=== PATIENT | female | born 1975 | race Hispanic/Latino ===

== ENCOUNTER 2019-03-27 19:52 | Emergency (ER) | payer BC ==
[2019-03-27 20:38] LABS: #Basophils 0.1 thou/uL (0.0-0.2); #Eosinphils 0.2 thou/uL (0.0-0.7); #Lymphocytes 2.7 thou/uL (1.20-3.40); #Monocytes 0.4 thou/uL (0.11-0.59); #Neutrophils 5.4 thou/uL (1.40-6.50); %Basophils 0.8 % (0.0-1.0); %Eosinophils 1.8 % (0.0-10.0); %Lymphocytes 30.8 % (21.0-51.0); %Monocytes 4.8 % (0.0-10.0); %Neutrophils 61.8 % (42.0-75.0); Hemoglobin 13.6 g/dL (12.0-16.0); Mean Corpuscular HGB CONC 34.6 g/dL (32.0-36.0); Mean Corpuscular Hemoglobin 30.2 pg (27.0-31.0); Mean Corpuscular Volume 87.3 fL (78.0-98.0); Mean Platelet Volume 7.7 fL (7.4-10.4); Platelet Count 301 thou/uL (130-400); RBC Distribution Width 11.3 % (11.5-14.5); Red Blood Cell (RBC) Count 4.48 mill/uL (4.20-5.40); White Blood Cell (WBC) Count 8.8 thou/uL (4.8-10.8)
--- NOTE | 2019-03-27 20:58 | CT ---
CT HEAD WITHOUT CONTRAST: 03/27/19 HISTORY: Headache. Dizziness. Ventricles have normal size and position. No evidence of intracranial mass, hemorrhage, infarct or ed dov. Sinuses are clear. IMPRESSION: No acute findings. POS: AGW
[2019-03-27 21:00] LABS: ALT (SGPT) 32 U/L (8-55); AST (SGOT) 27 U/L (5-34); Albumin 4.1 g/dL (3.5-5.0); Alkaline Phosphatase 119 U/L (40-110); Anion Gap 14 mmol/L (10-20); BUN (Urea Nitrogen) 9 mg/dL (7.0-18.7); Bilirubin, Total 0.3 mg/dL (0.2-1.2); CK (CPK) 67 U/L (29-168); Calc. Creatinine Clearance 0 mL/min (70-130); Calcium 9.5 mg/dL (7.8-10.44); Carbon Dioxide 28 mmol/L (22-29); Chloride 102 mmol/L (98-107); Estimated GFR-MDRD 84; Globulin 3.6 g/dL (2.4-3.5); Glucose 152 mg/dL (70-105); Potassium 3.9 mmol/L (3.5-5.1); Protein, Total 7.7 g/dL (6.0-8.3); Sodium 140 mmol/L (136-145)
--- NOTE | 2019-03-27 21:22 | RAD ---
PORTABLE AP CHEST X-RAY: 03/27/19 HISTORY: Chest pain. COMPARISON: 04/23/15. FINDINGS: The cardiac silhouette and pulmonary vasculature are within normal limits for the portable technique of the study. The lungs are clear. There has been no interval change from prior exam. IMPRESSION: No acute cardiopulmonary process. POS: OFF
[2019-03-27] MEDS ORDERED: diphenhydrAMINE 50 MG/ML VIAL ONE (21:50)
[2019-03-27] MEDS ORDERED: Metoclopramide HCl 10 MG/2 ML VIAL ONE (21:50)
== END 2019-03-27 23:00 | disposition home or self-care (01) ==
LOC: ERS 19:52
DX: R51 Headache (principal); R11.2 Nausea with vomiting, unspecified; R07.9 Chest pain, unspecified
CPT/HCPCS: 36415; 70450; 71045; 80053; 82550; 84484; 85025; 93005; 96365; 96375; J1200; J2765

== ENCOUNTER 2019-10-09 08:04 | Outpatient (CLI) | payer OTHER ==
--- NOTE | 2019-10-09 09:13 | MMO ---
Bilateral MAMMO Bilat Screen [facility]. CLINICAL HISTORY: Patient is 44 years old and is seen for screening. VIEWS: The views performed were: bilateral craniocaudal with tomosynthesis and bilateral mediolateral oblique with tomosynthesis. FILMS COMPARED: The present examination has been compared to prior imaging studies performed at [facility] on 10/02/2019 and 10/09/2019. This study has been interpreted with the assistance of computer-aided detection. MAMMOGRAM FINDINGS: The breasts are heterogeneously dense, which could obscure a lesion on mammography. Architectural distortion in the left 10:00 breast persists and corresponds to a suspicious mass on US. In the right breast, there are no suspicious masses, calcifications or areas of architectural distortion. IMPRESSION: FINDING IN THE LEFT BREAST IS SUSPICIOUS. AN ULTRASOUND-GUIDED BREAST BIOPSY IS RECOMMENDED. THE RESULTS OF THIS EXAM WERE SENT TO THE PATIENT. ACR BI-RADS Category 4 - Suspicious abnormality - biopsy should be considered D/W pt in person @ 8:43 am. MAMMOGRAPHY NOTE: 1. A negative mammogram report should not delay a biopsy if a dominant of clinically suspicious mass is present. 2. Approximately 10% to 15% of breast cancers are not detected by mammography. 3. Adenosis and dense breasts may obscure an underlying neoplasm. Reported by: KAVITA MAR MD Electonically Signed: [id number]
--- NOTE | 2019-10-09 10:56 | ULT ---
LEFT BREAST ULTRASOUND: Date: 10/09/2019 HISTORY: Abnormal mammogram. FINDINGS: Correlation is made with the mammograms of same date. There is a 6.0 x 8.0 x 8.0 mm shadowing mass at the 10 o'clock position of the left breast, taller th an wide, 2.0 cm from the nipple, corresponding to the mammographic finding. Enlarged lymph nodes are seen in the left axilla, the largest measuring 2.9 x 1.3 cm. IMPRESSION: BI-RADS Category 4 - Suspicious abnormality. Ultrasound-guided biopsy of the left breast mass is avinash mmended. Discussed in person with the patient at 0843 hours.
== END 2019-10-09 08:05 | disposition home or self-care (01) ==
LOC: BICULT 08:04
PROVIDERS: ATTEND Physician Assistant
DX: Z12.31 Encounter for screening mammogram for malignant neoplasm of breast (principal); N63.20 Unspecified lump in the left breast, unspecified quadrant
CPT/HCPCS: 77063; 77067

== ENCOUNTER 2019-10-16 06:34 | Outpatient (CLI) | payer OTHER ==
[2019-10-16 17:31] LABS: #Basophils 0.1 thou/uL (0.0-0.2); #Eosinphils 0.2 thou/uL (0.0-0.7); #Lymphocytes 2.5 thou/uL (1.20-3.40); #Monocytes 0.5 thou/uL (0.11-0.59); %Basophils 0.8 % (0.0-1.0); %Eosinophils 1.7 % (0.0-10.0); %Lymphocytes 27.2 % (21.0-51.0); %Monocytes 5.7 % (0.0-10.0); %Neutrophils 64.7 % (42.0-75.0); Hemoglobin 13.2 g/dL (12.0-16.0); Mean Corpuscular HGB CONC 32.9 g/dL (32.0-36.0); Mean Corpuscular Hemoglobin 29.9 pg (27.0-31.0); Mean Corpuscular Volume 91.1 fL (78.0-98.0); Mean Platelet Volume 8.1 fL (7.4-10.4); Platelet Count 305 thou/uL (130-400); RBC Distribution Width 11.8 % (11.5-14.5); Red Blood Cell (RBC) Count 4.42 mill/uL (4.20-5.40); White Blood Cell (WBC) Count 9.2 thou/uL (4.8-10.8)
[2019-10-16 17:42] LABS: Anion Gap 11 mmol/L (10-20); BUN (Urea Nitrogen) 10 mg/dL (7.0-18.7); Calc. Creatinine Clearance 0 mL/min (70-130); Calcium 9.5 mg/dL (7.8-10.44); Carbon Dioxide 26 mmol/L (22-29); Chloride 107 mmol/L (98-107); Estimated GFR-MDRD 79; Glucose 86 mg/dL (70-105); Potassium 3.6 mmol/L (3.5-5.1); Sodium 140 mmol/L (136-145)
[2019-10-17 10:58] LABS: SARS-CoV-2 MS2 Positive; SARS-CoV-2 N Gene Negative; SARS-CoV-2 S Gene Negative; SARS-CoV-2 orf1ab Negative
== END 2019-10-16 06:35 | disposition home or self-care (01) ==
LOC: LABBT 06:34
PROVIDERS: ATTEND Specialist
DX: Z01.812 Encounter for preprocedural laboratory examination (principal); Z11.59 Encounter for screening for other viral diseases; N63.20 Unspecified lump in the left breast, unspecified quadrant
CPT/HCPCS: 80048; 85025; 87635; U0003

== ENCOUNTER 2019-10-19 06:54 | Day surgery (SDC) | payer OTHER ==
[2019-10-16 15:40] VITALS: BMI 33.3
--- NOTE | 2019-10-19 07:11 | HP ---
HISTORY OF PRESENT ILLNESS: Kerry Amaya is a 44-year-old female, intermediate services [facility], presents with left breast density, 10 o'clock radian, left breast retroareolar. She has undergone ultrasound and mammograms revealing normal right breast, but density in left breast, felt best addressed by mammo needle localization rather than ultrasound-guided biopsy because of the patient's location and small size, 6 x 8 x 8 mm shadowing on ultrasound on 10/09/2019. FAMILY HISTORY: Negative for breast cancer. Menarche at 8 to 9 years of age. 3, para 3. First at 17 years of age. She is 44 years old and had a hysterectomy at 41 years of age because of abnormal Pap smear. ALLERGIES: NONE. SOCIAL HISTORY: Tobacco, none. Alcohol, none. MEDICATIONS: 1. Iron. 2. Vitamin D3. 3. Venlafaxine. 4. Bactrim DS. 5. Mupirocin. PAST MEDICAL HISTORY: Anxiety and depression. PAST SURGICAL HISTORY: Tubal ligation in 1997, followed by hysterectomy. FAMILY HISTORY: Diabetes and hypertension. REVIEW OF SYSTEMS: Ten-point noncontributory. PHYSICAL EXAMINATION: VITAL SIGNS: Weight 188 pounds, height 63 inches, 33 BMI, blood pressure 128/81, pulse 95, and temperature 97.2 degrees. HEAD, EARS, EYES, NOSE, AND THROAT: Unremarkable. LUNGS: Clear to auscultation. CARDIAC: Regular rate and rhythm without murmur or gallop. ABDOMEN: Soft, obese, nontender. BREASTS: Both breasts without palpable abnormalities. Nipple and areola are normal. Left axilla without palpable abnormality. EXTREMITIES: Unremarkable. ASSESSMENT: Left breast density, nonpalpable. PLAN: Mammographically needle localized excisional biopsy. She will follow up in the office in 3 to 4 days for postoperative pathology results. Of note is ultrasound did reveal a greater than 2.5 cm left axillary node that I cannot palpate. We will await breast biopsy results. Excisional. Job ID: [id number]
--- NOTE | 2019-10-19 08:39 | MMO ---
Needle localization left breast mass mammographic guided HISTORY: Abnormal mammogram. Spiculated left breast mass. Upper inner quadrant. FINDINGS: After explaining the procedure and answering all questions, the spiculated mass at the supe rior medial aspect of the left breast was visualized. Sterile technique, buffered local anesthesia, mammographic guidance, and a superior approach were used to carefully advance a 7.5 cm [place] needle i mmediately deep to the mass. Guidewire was placed when needle tip was immediately inferior and posterior to the center of the spiculated mass. Final images were marked. Patient tolerated the proce dure well and was transferred to day surgery in good condition. IMPRESSION : Technically successful needle localization left breast mass.
[2019-10-19] MEDS ORDERED: PROPOFOL 200 MG/20 ML VIAL ONE (11:51)
[2019-10-19] MEDS ORDERED: Lidocaine 1% PF 5 ML VIAL ONE (11:51)
[2019-10-19] MEDS ORDERED: Ondansetron PF 4 MG/2 ML Vial ONE (11:51)
[2019-10-19] MEDS ORDERED: Dexamethasone 20 MG/5 ML VIAL ONE (11:51)
[2019-10-19] MEDS ORDERED: Bupivacaine 0.25% HCL 30 ML VIAL ONE (12:20)
[2019-10-19] MEDS ORDERED: Bupivacaine PF 0.5% 30 ML VIAL ONE (12:20)
[2019-10-19] MEDS ORDERED: Lidocaine 2% w/Epinephrine 1:200K 20 ML VIAL ONE (12:20)
[2019-10-19] MEDS ORDERED: Fentanyl 100 MCG/2 ML VIAL ONE (12:24)
--- NOTE | 2019-10-19 14:01 | MMO ---
Surgical specimen mammography HISTORY: Breast mass. FINDINGS: Mammographic evaluation of the surgical specimen obtained by Dr. Forman shows the localizat ion wire and spiculated mass.
[2019-10-19] MEDS ORDERED: HYDROcodone/Acetaminophen 5/325 mg Tablet ONE (14:05)
--- NOTE | 2019-10-19 18:39 | OP ---
DATE OF PROCEDURE: 10/19/2019 PREOPERATIVE DIAGNOSIS: Small density retroareolar 10 o'clock radian, left breast, not amenable to preoperative biopsy requiring mammographic needle localization. POSTOPERATIVE DIAGNOSIS: Small density retroareolar 10 o'clock radian, left breast, not amenable to preoperative biopsy requiring mammographic needle localization. PROCEDURE: Radiology mammo needle localization, wire lesion, left retroareolar breast 10 o'clock R[place] with wide local excision of mass extending from medial to lateral retroareolar and lateral breast to accomplish resection of the localizing wire with margins marked and specimen mammography assuring spiculated mass retrieval. ANESTHESIA: General, local 0.5% Marcaine mixed with 2% Xylocaine with epinephrine 30 mL. DESCRIPTION OF PROCEDURE: Patient was taken to the operating room, where after mammographically needle localization by Radiology, wire in this superior medial left breast. Left breast and axilla and chest prepared with ChloraPrep and draped in routine fashion. Incision made transversely in the upper medial left breast below the localizing wire entry point and dissection carried out bringing the localizing wire into the incision, excising the surrounding area of breast retroareolar and inferiorly and laterally resecting the specimen, marking it appropriately with sutures for pathology identification and evaluation with specimen mammography, retrieval of the small spiculated mass. There was another area of retroareolar that felt little firm, probably benign, but nonetheless was excised and submitted in the same specimen. Hemostasis obtained with cautery meticulously, subcutaneous tissues approximated with 3-0 Monocryl, skin with subdermal 4-0 Monocryl and the biopsy cavity filled with local anesthetic and surrounding soft tissues infiltrated with local anesthetic mixture. Dermabond was applied. Patient tolerated the procedure well. Job ID: [id number]
== END 2019-10-19 15:16 | disposition home or self-care (01) ==
LOC: SDC 06:54
PROVIDERS: ATTEND Specialist
PROC: 0HBU0ZZ Excision of Left Breast, Open Approach (ICD-10-PCS; principal; 2019-10-19)
DX: N62 Hypertrophy of breast (principal); N60.82 Other benign mammary dysplasias of left breast; F41.9 Anxiety disorder, unspecified; F32.9 Major depressive disorder, single episode, unspecified; Z79.899 Other long term (current) drug therapy
CPT/HCPCS: 19281; 76098; 88307; 88341; 88342; J0690; J1100; J2001; J2405; J2704; J3010; S0020

== ENCOUNTER 2020-03-10 09:03 | Emergency (ER) | payer OTHER ==
--- NOTE | 2020-03-10 09:44 | RAD ---
TWO VIEW CHEST: HISTORY: Chest pain. FINDINGS: Lung brandt are clear. No infiltrate or vascular congestion. Heart and mediastinum appear normal. Osseous structures unremarkable. IMPRESSION: No acute process identified. POS: AGW
[2020-03-10 09:56] LABS: #Basophils 0.1 thou/uL (0.0-0.2); #Eosinphils 0.1 thou/uL (0.0-0.7); #Lymphocytes 1.9 thou/uL (1.20-3.40); #Monocytes 0.4 thou/uL (0.11-0.59); %Eosinophils 1.4 % (0.0-10.0); %Lymphocytes 29.6 % (21.0-51.0); %Monocytes 5.7 % (0.0-10.0); %Neutrophils 62.3 % (42.0-75.0); Hemoglobin 14.4 g/dL (12.0-16.0); Mean Corpuscular HGB CONC 33.8 g/dL (32.0-36.0); Mean Corpuscular Hemoglobin 29.9 pg (27.0-31.0); Mean Corpuscular Volume 88.6 fL (78.0-98.0); Platelet Count 313 thou/uL (130-400); RBC Distribution Width 11.8 % (11.5-14.5); Red Blood Cell (RBC) Count 4.82 mill/uL (4.20-5.40); White Blood Cell (WBC) Count 6.5 thou/uL (4.8-10.8)
[2020-03-10 10:16] LABS: BHCG - Serum Negative (NEGATIVE); Pregs Control Background? CLEAR/WHITE (CLR/WHITE); Pregs Control Bar Appear? YES (CONTROL BAR)
[2020-03-10 10:19] LABS: ALT (SGPT) 24 U/L (8-55); AST (SGOT) 17 U/L (5-34); Albumin 4.2 g/dL (3.5-5.0); Alkaline Phosphatase 108 U/L (40-110); Anion Gap 12 mmol/L (10-20); BUN (Urea Nitrogen) 15 mg/dL (7.0-18.7); Bilirubin, Total 0.5 mg/dL (0.2-1.2); CK (CPK) 89 U/L (29-168); Calc. Creatinine Clearance 0 mL/min (70-130); Calcium 9.3 mg/dL (7.8-10.44); Carbon Dioxide 26 mmol/L (22-29); Chloride 103 mmol/L (98-107); Estimated GFR-MDRD Greater than 90; Globulin 3.7 g/dL (2.4-3.5); Glucose 100 mg/dL (70-105); Potassium 4.2 mmol/L (3.5-5.1); Protein, Total 7.9 g/dL (6.0-8.3); Sodium 137 mmol/L (136-145)
[2020-03-10] MEDS ORDERED: diphenhydrAMINE 12.5 MG/5 ML UDCUP ONE (10:27)
[2020-03-10] MEDS ORDERED: Magnesium 2 GM/50 ML BAG (IN WATER) ONE (10:27)
[2020-03-10] MEDS ORDERED: Metoclopramide HCl 10 MG/2 ML VIAL ONE (10:27)
[2020-03-10] MEDS ORDERED: diphenhydrAMINE 50 MG/ML VIAL ONE (10:28)
[2020-03-10 10:41] LABS: Bilirubin Negative (Negative); Blood, Urine Negative (Negative); Clarity Clear (Clear); Glucose, Urine (Dipstick) Normal (Negative); Ketone, Urine Negative (Negative); Leukocyte Negative Leu/uL (Negative); Nitrite Negative (Negative); Protein, Urine (Dipstick) Negative (Neg-Trace); Specific Gravity, Urine 1.024 (1.002-1.036); Urobilinogen Normal mg/dL (Less than 2); pH, Urine 5.5 (5.0-9.0)
[2020-03-10] MEDS ORDERED: Lidocaine Viscous Sol 2% 15 ml UD Cup ONE (11:47)
[2020-03-10] MEDS ORDERED: Mag-Al 1200 mg/1200 mg/30 ML UDCUP ONE (11:47)
== END 2020-03-10 12:53 | disposition home or self-care (01) ==
LOC: ERS 09:03
DX: R07.9 Chest pain, unspecified (principal); R51.9 Headache, unspecified; E78.5 Hyperlipidemia, unspecified; E78.00 Pure hypercholesterolemia, unspecified; F32.9 Major depressive disorder, single episode, unspecified; F41.9 Anxiety disorder, unspecified; Z79.899 Other long term (current) drug therapy
CPT/HCPCS: 71046; 80053; 81003; 82550; 83880; 84484; 84703; 85025; 87086; 93005; J1200; J2765; J3475; Q0163